=== PATIENT | female | born 1945 | race Caucasian/White ===

== ENCOUNTER → 2018-08-07 10:43 | Outpatient (CLI) | payer MEDICARE, OTHER | END | disposition home or self-care (01) | LOC: D.CT 10:43 | DX: Z91.81 History of falling (principal); W19.XXXA Unspecified fall, initial encounter ==

== ENCOUNTER → 2018-10-09 08:08 | Outpatient (CLI) | payer MEDICARE, OTHER | END | disposition home or self-care (01) | LOC: D.CT 08:08 | DX: I65.23 Occlusion and stenosis of bilateral carotid arteries (principal) ==

== ENCOUNTER 2018-11-07 07:30 | Inpatient (IN) | payer MEDICARE, OTHER ==
--- NOTE | 2018-10-30 13:24 | HP ---
PATIENT: NAVID NORIEGA MEDICAL RECORD: [id number] ACCOUNT: [id number] LOCATION:[facility] : 41 ADMISSION DATE: 11/07/18 PCP: HISTORY AND PHYSICAL EXAMINATION ISABEL Thomas (73yo, F) ID# [id number]. Date/Time10/28/2018 11:82MRDEP1943Ser[facility] Dept.NPP_[facility] ClinicProviOtis BANSAL MDInsuranceMed Primary[place] Insurance # : [id number] Employer Name : RETIRED Med Secondary: .[place] (MEDICARE SUPPLEMENT) Insurance # : [id number] Employer Name : RETIRED Prescription: DSTPSDIR - Member is eligible. Chief Complaint Carotid stenosis Patient's Care Team Other: ALBERT ZHANG DO: [address] [place] [address], , Patient's Pharmacies [facility] (ERX): [address] [place] [address] [place] [address], , Vitals BP:124/68 sitting L arm 10/28/2018 11:23 amHR:84/reg 10/28/2018 11:24 amHt:5 ft 10/28/2018 11:21 amWt:99 lbs 10/28/2018 11:21 amBMI:19.3 10/28/2018 11:21 amAllergies Reviewed Allergies FORTEOMedications Reviewed Medications acetaminophen 300 mg-codeine 30 mg /26/15 filled[facility] Systemsalendronate 35 mg /13/16 filledArg[facility] SystemsALPRAZolam 0.25 mg owfbeh66/27/18 filledArg[facility] Systemsamitriptyline 25 mg ocxjzu51/18/13 filledMEDCOamitriptyline 50 mg gdbqfe59/02/19 filledArg[facility] Systemsamitriptyline-chlordiazepoxide 12.5 mg-5 mg ytgtzv90/23/13 filledMEDCOamitriptyline-chlordiazepoxide 25 mg-10 mg pgpelg56/22/13 filledMEDCOamoxicillin 500 mg yyeiywx69/18/11 filled[facility] HospitalShipsterAyr Saline 0.65 % nasal drops 2 drops in each nostrils tid.12/10/12 prescribedGabby Andersonthromycin 250 mg iwokbk12/25/12 filledMEDCObaclofen 10 mg /15/14 [facility] Southgene Technologycefdinir 300 mg cplfwna33/09/13 filledMEDCOcetirizine 10 mg /19/13 filledMEDCOchlorhexidine gluconate 0.12 % hbocoevcs33/06/17 filled[facility] HospitalShipsterclonazePAM 0.5 mg /26/15 [facility] Southgene TechnologyclonazePAM 1 mg /23/15 [facility] Southgene Technologydoxycycline hyclate 100 mg ujhycyl15/26/12 filledMEDCOergocalciferol (vitamin D2) 50,000 unit eztivos83/06/11 filled[facility] HospitalShipsterfluticasone 50 mcg/actuation nasal spray,kjhexwvibj06/19/14 filled[facility] HospitalShipsterFluvirin [id number] 45 mcg (15 mcg x 3)/0.5 mL intramuscular suspension INJECT 0.5 ML INTRAMUSCULARLY DIRECTED.07/24/14 filledsurescriptsHalflytely-Bisa codyl w-Flavor Pack 5 mg-210 gram oral kit05/19/11 [facility] Southgene TechnologyHYDROcodone 10 mg-acetaminophen 325 mg egpmgk89/04/14 [facility] Southgene TechnologyHYDROcodone 5 mg-acetaminophen 325 mg girfnb97/07/18 filledP[facility] HospitalShipsterketorolac 0.5 % eye drops02/23/15 [facility] Southgene Technologylevothyroxine 25 mcg /08/14 [facility] Southgene Technologylevothyroxine 50 mcg msqnpu23/02/19 filledP[facility] HospitalShipstermethylPREDNISolone 4 mg tablets in a dose pack07/04/18 [facility] Southgene Technologymontelukast 10 mg hizifi46/13/15 [facility] Southgene TechnologyMucinex DM 60 mg-1,200 mg tablet,extended release 12 HISTORY AND PHYSICAL [id number] NAVID NORIEGA hr02/06/11 filled[facility] HospitalShipsterNasonex 50 mcg/actuation Glenoma Glenoma 2 SPRAY EVERY DAY by intranasal route to each nostrils x 7 days and then d/c012/10/12 prescribedOlvin Jackson MDofloxacin 0.3 % eye drops08/07/18 filledCirropeg 3350 240 gram-electrolytes 22.72 gram-6.72 g-5.84 g powdr for soln05/25/16 filled[facility] [place] Southgene TechnologypredniSONE 10 mg tablet 30mg x 5 days orally and then d/c012/10/12 prescribedJustin AndersonredniSONE 5 mg tablets in a dose pack09/16/12 filledMEDCOrOPINIRole 2 mg btwkbo87/02/19 filledCirrosertraline 50 mg /17/18 filledCirrotobramycin 0.3 % eye drops03/03/15 filledCirrotraMADol 50 mg bohoio78/31/14 filledCirroProblems Reviewed Problems Hypothyroidism Vitamin D deficiency Hyperlipidemia Carotid artery stenosis Asthma Chronic obstructive lung disease Osteoporosis Respiratory finding Family History Reviewed Family History Mother- Alzheimer's disease - Diabetes mellitusFather- Myocardial infarction - Heart disease - Malignant tumor of lungSocial History Reviewed Social History Cardiology and General Family history of heart disease?: Y Smoking Status: Former smoker (Notes: QUIT IN 1959) Smoker (1 PPW) High Cholesterol: Y High blood pressure: N Diabetes: N Alcohol intake: None Occupation: retired Marital status: Caffeine intake: Heavy Surgical History Reviewed Surgical History COLONOSCOPY 2016 BACK SURGERY 08/05/14 BREAST BIOPSY 2005 L BREAST-BENIGN BREAST BIOPSY 2004 L BREAST-BENIGN FORCER MAKER History (not configured) Past Medical History Reviewed Past Medical History Asthma: Y Carotid Stenosis: Y Depression: Y Hyperlipidemia: Y Hypothyroidism: Y Joint Pain or Swelling: Y Kidney Disease: Y Rheumatic Fever: Y HISTORY AND PHYSICAL [id number] NAVID NORIEGA Shortness of Breath: Y Thyroid Problems: Y Documents for Discussion N/A Screening None recorded. HPI recent episodes of syncope with fall, including breaking her glasses She reports that at confucianism her friends say she falls to the left Denies specific amaurosis fugax, aphascia, hemiparesis or hemiplegia no cardiac history, denies palpitations ROS Additionally reports: as reviewed in the chart with the patient and her son Aspirin ROS as noted in the HPI Physical Exam Patient is a 73-year-old female. Constitutional: General Appearance well nourished and developed and healthy-appearing. Level of Distress NAD. Ambulation ambulating normally. Ears, Nose, Throat: Ears grossly normal hearing. Oropharynx: moist mucous membranes. Cardiovascular: Apical Impulse not displaced or no thrill. Heart Auscultation no murmurs, rubs, or gallops and RRR. Arterial Pulses carotid 2+ bilateral; 2+ bilateral radial Arm brachial pressures equal. Edema no edema or varicosities. Lungs: Repiratory Effort no dyspnea. Auscultation no wheezing, rhonchi, or rales / crackles and breathing sounds normal and good air movement. Abdomen: Inspection and Palpation soft, non-distended, and no tenderness. Musculoskeletal System: Gait And Stance normal gait and stance. Digits and Nails normal nails and no cyanosis. Joints, Bones, and Muscles normal strength and movement of all extremities. Neurologic: Cranial Nerves grossly intact. Sensation grossly intact. Lymph Nodes: Lymph Nodes no cervical LAD or supraclavicular LAD. Eyes: Lids and Conjunctivae no discharge or pallor and non-injected. Pupils PERRLA. EOM EOMI. Sclera non-icteric. Neck: Neck no masses, enlarged lymph nodes, or carotid bruits and supple and trachea midline. Thyroid no enlargement or nodules and non-tender. Skin: Inspection and Palpation no rash, lesions, ulcers, or jaundice. Assessment / Plan 1. Carotid artery stenosis I65.29: Occlusion and stenosis of unspecified carotid artery CAROTID STENOSIS: CARE INSTRUCTIONS Patient Instructions HISTORY AND PHYSICAL [id number] NAVID NORIEGA take care and only ambulate with another person present Discussion Notes CTA shows significant calcification in the distal right innominate artery involving the subclavian artery, however there are no differences in arm pressures and no retrograde vertebral flow. Circumferential calcification of the carotid bulb Likely symptomatic right internal carotid artery stenosis with hemispheric ischemia resulting in syncope, recommend right carotid endarterectomy. We discussed the rationale for surgery, the alternatives, benefits, and the risks. Consent given Return to Office None recorded. Encounter Sign-Off Encounter signed-off by Gerry BANSAL MD, 10/28/2018. Encounter performed and documented by Gerry BANSAL MD Encounter reviewed & signed by Gerry BANSAL MD on 10/28/2018 at 12:10pm GERRY BANSAL MD at 1324 CC: [id number] DICTATION DATE: 10/28/18 1130 JIG BOX OPERATOR: ALICIA 10/29/18 1500 [address] [place] [id number] [place] [id number]
[2018-11-05 15:02] LABS: HEMATOCRIT 37.7 % (36.0-48.0); HEMOGLOBIN 12.1 g/dL (12-16); MCH 30.3 pg (26.0-34.0); MCHC 32.1 g/dL (31.0-37.0); MCV 94.5 fL (80.0-100.0); MEAN PLATELET VOLUME 9.1 fL (7.4-10.4); RBC 3.99 10x6/uL (4.00-5.40); RDW 12.8 % (11.5-14.5); WBC 8.4 10x3/uL (4.8-10.8)
[2018-11-05 15:07] LABS: APTT 27.8 SECONDS (22.8-39.4); PROTIME 12.7 SECONDS (11.6-15.0)
[2018-11-05 15:11] LABS: APPEARANCE CLEAR (CLEAR); BILIRUBIN NEGATIVE (NEGATIVE); COLOR YELLOW (YELLOW); GLUCOSE NEGATIVE (NEGATIVE); KETONE NEGATIVE (NEGATIVE); NITRITE NEGATIVE (NEGATIVE); PROTEIN NEGATIVE (NEGATIVE); UROBILINOGEN NORMAL (NORMAL)
[2018-11-05 15:12] LABS: ALBUMIN 3.9 g/dL (3.4-5.0); ANION GAP 12.9 mmol/L (8-16); BILIRUBIN - TOTAL 0.37 mg/dL (0.2-1.3); CALCIUM 8.9 mg/dL (8.5-10.1); CARBON DIOXIDE 28.5 mmol/L (21.0-32.0); CREATININE - SERUM 0.8 mg/dL (0.6-1.3); POTASSIUM - SERUM 3.4 mmol/L (3.5-5.1); PROTEIN - SERUM 8.1 g/dL (6.4-8.2)
[2018-11-06 08:22] LABS: HEPATITIS C ANTIBODY <0.1 S/CO RAT (0.0-0.9)
[~2018-11-07] VITALS: Ht 152.4 cm; Wt 46.1 kg
[~2018-11-07 07:30] MED LIST: AMITRIPTYLINE H50 MG PO; ASPIRIN EC81 M1 PO; REQUIP1 MG PO; SYNTHROID50 MCG PO; VITAMIN D31000 UNIT PO; XANAX0.25 MG PO
[2018-11-08] VITALS (16 sets, daily range): BP systolic 110–135; BP diastolic 46–60; BMI 19.3; BMI 20.2
--- NOTE | 2018-11-08 15:45 | NUR ---
PT ARRIVED IN THE UNIT. PT HOOKED TO ICU MONITORS. PT AWAKE AND ALERT. RIGHT NECK DRESSING C/D/I. RIGHT NECK LA DRAIN COMPRESSED WITH SCANT AMOUNT OF BLOODY DRAINGED. LEFT AC IV NOTED. PATENT. DRESSING C/D/I. LEFT RADIAL DARRYL NOTED. DRESSING C/D/I. FC NOTED WITH CLEAR, YELLOW URINE. VSS. PT CALM AND FOLLOWING DIRECTIONS. NEURO CHECKS WNL. CALL LIGHT IN REACH. ICE PACK APPLIED TO RIGHT NECK. WILL CONT POC.
--- NOTE | 2018-11-08 16:30 | NUR ---
VSS. PT TOLERATED ICE CHIPS WELL.
--- NOTE | 2018-11-08 18:00 | NUR ---
PT ADVANCED TO CLEAR LIQUIDS. SWALLOWED PO MEDS WELL. NO DYSPAGIA. VSS. NEURO CHECKS REMAINS WNL. TRACHIA REMAINS MIDLINE WITH NO AIRWAY OBSTRUCTION. CALL LIGHT IN REACH. WILL CNO TPOC.
[2018-11-09] VITALS (24 sets, daily range): BP systolic 94–131; BP diastolic 44–62; Ht 152.4 cm; Wt 46.1 kg
--- NOTE | 2018-11-09 05:00 | NUR ---
PT LAYING IN BED RESTING. VERBALIZES NO COMPLAINTS. VSS. WILL CONTINUE TO MONITOR.
--- NOTE | 2018-11-09 07:00 | NUR ---
AWAKES EASILY TO VERBAL STIMULI SKIN WARM AND DRY.HAND CORN CHIP MAKER EQUAL AND STRONG. RIGHT NECK DRESSING DRY AND INTACT. DRESSING FROM DRAINAGE SMALL AMOUNT SERSANG DRAINAGE ON IT. DENIES PAIN. LUNA CATH PATENT DRAINING CLEAR YELLOW URINE. LEFT RADIAL DARRYL SITE WITHOUT REDNESS OR DRAINAGE. GOOD WAVE FORM. FLUSHED AND ZEROED.
--- NOTE | 2018-11-09 08:00 | NUR ---
CLEAR LIQUID DIET SERVED DRANK WELL. ALL OF JELLO, CHICKEN BROTH AND COFFEE. FEW SIPS OF APPLE JUICE. DENIES ANY NAUSEA OR SWALLOWING PROBLEMS.
--- NOTE | 2018-11-09 10:00 | NUR ---
NO DISTRESS NAPPING AT INTERVALS. GOOD WAVE FORM DARRYL.
--- NOTE | 2018-11-09 11:56 | NUR ---
REGULAR DIET SERVED. PATIENT DOES NOT EACT BEEF. TUNA SALAD ORDERED PER PATIENT REQUEST. EATING VEGETABLES AND BREAD ON TRAY. STATES SHE IS HUNGRY. DAUGHTER AT BEDSIDE
--- NOTE | 2018-11-09 12:47 | NUR ---
AMBULATED TO BATHROOM, COULD NOT HARDLY WALK. WALKER OBTAINED SOME BETTER, STILL HAVING A DIFFICULTY TIME WALKING. IN ROOM
--- NOTE | 2018-11-09 13:31 | NUR ---
DARRYL DISCONTINUED PRESSURE HELD X 5 MIN. NO BLEEDING AT SITE, SMALL BRUISING NOTED. PRESSURE DRESSING PLACE. PALABLE LEFT RADIAL PULSE. PATEINT TOLERATED WELL. LUNA CATH REMOVED. PATIENT TOLERATED WELL. FAMILY AT BEDSIDE.
--- NOTE | 2018-11-09 13:34 | NUR ---
DARRYL DISCONTINUED. PRESSURE HELD 5 MIN. NO BLEEDING AT SITE, SMALL BRUISING NOTED. PRESSURE DRESSING PLACE. PALABLE LEFT RADIAL PULSE PRESENT. PATIENT TOLERATED WELL. LUNA CATH DC'D. PATIENT TOLERATED WELL. FAMILY AT BEDSIDE.
--- NOTE | 2018-11-09 15:00 | NUR ---
UP AMBULATED IN ROOM WITH ASSISTANCES. FAIRLY GOOD GAIT. NO COMPLIANTS OF DIZZYNESS, ETC. UP IN CHAIR AT BEDSIDE. TOLERATED FAIR.
--- NOTE | 2018-11-09 16:22 | NUR ---
AMBULATED TO BATHROOM THEN BACK TO BED. DAUGHTER AT BEDSIDE. NO DISTRESS. CENTRAL LINE SALINE LOCKED. VOIDED IN BATHROOM.
--- NOTE | 2018-11-09 16:49 | NUR ---
DINNER TRAY SERVED. DAUGHTER IN ROOM ASSISTING PATIENT WITH SET UP
--- NOTE | 2018-11-09 18:45 | NUR ---
working a puzzle, ambulated to bathroom. gait improving. no distress denies pain
--- NOTE | 2018-11-09 19:00 | NUR ---
REPORT RECEIVED AND ASSESSMENT COMPLETED. SEE FLOWSHEET FOR FULL DETAILS. VSS. WILL MONITOR THROUGHOUT SHIFT
--- NOTE | 2018-11-09 21:00 | NUR ---
PT HR 165 FOR UNDER 1 MIN. CONTACTED NEW ORDERS RECEIVED.
[2018-11-09 21:24] LABS: BASOPHILS 0.2 % (0-2); EOSINOPHILS 0.2 % (0-7); HEMATOCRIT 34.4 % (36.0-48.0); HEMOGLOBIN 11.1 g/dL (12-16); IMMATURE GRANULOCYTES 0.2 % (0-5); LYMPHOCYTES 34.3 % (15-50); MCH 30.4 pg (26.0-34.0); MCHC 32.3 g/dL (31.0-37.0); MCV 94.2 fL (80.0-100.0); MEAN PLATELET VOLUME 9.3 fL (7.4-10.4); MONOCYTES 10.9 % (2-11); NEUTROPHILS 54.2 % (40-80); PLATELET COUNT 262 10x3/uL (130-400); RBC 3.65 10x6/uL (4.00-5.40); RDW 12.8 % (11.5-14.5); WBC 12.3 10x3/uL (4.8-10.8)
[2018-11-09 21:35] LABS: ALBUMIN 3.2 g/dL (3.4-5.0); ANION GAP 12.4 mmol/L (8-16); BILIRUBIN - TOTAL 0.51 mg/dL (0.2-1.3); CALCIUM 8.3 mg/dL (8.5-10.1); CARBON DIOXIDE 28.3 mmol/L (21.0-32.0); CREATININE - SERUM 0.8 mg/dL (0.6-1.3); POTASSIUM - SERUM 3.7 mmol/L (3.5-5.1); PROTEIN - SERUM 7.1 g/dL (6.4-8.2)
[2018-11-10] VITALS (12 sets, daily range): BP systolic 96–124; BP diastolic 46–68
[2018-11-10] MEDS ORDERED: PLAVIX75 MG PO (12:12)
[2018-11-10] MEDS ORDERED: LOPRESSOR25 MG PO (12:13)
--- NOTE | 2018-11-10 12:30 | NUR ---
L SUBCLAVIAN DOUBLE LUMEN DC'D. SITE DRESSED WITH 2X2 AND TEGADERM.
--- NOTE | 2018-11-10 13:24 | NUR ---
1310: DISCHARGE INSTRUCTIONS REVIEWED WITH PATIENT AND DAUGHTER. 1320: DISCHARGED HOME WITH DAUGHTER. ESCORTED TO VEHICLE VIA WHEELCHAIR.
--- NOTE | 2018-11-16 12:11 | OP ---
PATIENT NAME: NAVID NORIEGA MEDICAL RECORD: [id number] :41 LOCATION:[facility] ADMISSION DATE:11/08/18 SURGEON: JUAN ALBERTO KOLB MD DATE OF OPERATION: 11/08/2018 SURGEON: Juan Alberto Kolb MD OPTICAL DISPENSER: Gerry Clarke MD ANESTHESIA: General, Dr. Lara. OPERATION PERFORMED: Right carotid endarterectomy with patch angioplasty. PREOPERATIVE DIAGNOSIS: Severe right internal carotid artery stenosis. POSTOPERATIVE DIAGNOSIS: Severe right internal carotid artery stenosis. INDICATION FOR OPERATION: Severe right internal carotid artery stenosis. FINDINGS AT OPERATION: Severe right internal carotid artery stenosis. There were no EEG changes with clamping or unclamping of the carotid artery. ESTIMATED BLOOD LOSS: Less than 100 cc. DESCRIPTION OF PROCEDURE: After informed consent, adequate preoperative medication evaluation, the patient was brought to the operating room, placed on the table in the supine position. After induction of general endotracheal anesthesia and application of appropriate monitoring devices, the right neck and chest were prepped and draped in sterile field, utilizing Betadine scrub, alcohol, and Betadine solution. Betadine-impregnated drape was also used. An oblique incision was made in the skin crease. Dissection carried down the fascia. Hemostasis maintained with electrocautery. The facial vein was identified and divided. Utilizing sharp dissection, the common carotid, internal and external carotid arteries were dissected free of surrounding structures with the aid of Dr. Clarke. Dr. Clarke also participated in the endarterectomy and sewing of the patch into position. The patient was given a calculated dose of heparin. After 3 minutes, clamps were applied. After 2 minutes, no EEG change. The arteriotomy was made and extended with Lomax scissors. Artery underwent endarterectomy sharply. Artery underwent extensive debridement and irrigation. Utilizing a vascular patch and running 7-0 Prolene suture, the arteriotomy was closed with patch angioplasty technique. All maneuvers to remove trapped air were performed. The clamps removed sequentially. There were no EEG changes. The patient was given a calculated dose of protamine to reverse the heparin. Hemostasis was achieved. A #7 Damion-Carbajal drain was left in depths of wound and brought through the base of the neck. Neck was again irrigated. Instrument count and sponge count were correct times 2. Neck was closed in layers utilizing 3-0 Vicryl on the platysma, 5-0 subcuticular Monocryl on the skin. Sterile dressings were applied. The patient tolerated the procedure well and was transferred to CV ICU in satisfactory condition. TRANSINT:[id number] Voice Confirmation ID: [id number] DOCUMENT ID: [id number] OPERATIVE REPORT [id number] NAVID NORIEGA EDWARD MD at 1211 CC: [id number] DICTATION DATE: 11/08/18 1529 INFANT ROOM TEACHER: 11/08/18 1628 DIS IN 11/10/[address] [place] [id number] [place] [address]
== END 2018-11-10 13:20 | disposition home or self-care (01) | DRG 39 ==
LOC: D.SDCHOLD 07:30 → D.CVICU 11-08 08:10
PROVIDERS: Thoracic Surgery (Cardiothoracic Vascular Surgery); ADMIT Internal Medicine Cardiovascular Disease
PROC: 03UK0JZ Supplement Right Internal Carotid Artery with Synthetic Substitute, Open Approach (ICD-10-PCS; 2018-11-08)
PROC: 03CK0ZZ Extirpation of Matter from Right Internal Carotid Artery, Open Approach (ICD-10-PCS; principal; 2018-11-08 12:00)
DX: I65.21 Occlusion and stenosis of right carotid artery (principal); E78.5 Hyperlipidemia, unspecified; E03.9 Hypothyroidism, unspecified; J44.9 Chronic obstructive pulmonary disease, unspecified; M81.0 Age-related osteoporosis without current pathological fracture; R00.0 Tachycardia, unspecified; E55.9 Vitamin D deficiency, unspecified